=== PATIENT | female | born 1995 | race Caucasian/White ===

== ENCOUNTER 2017-02-11 13:09 | Inpatient (IN) | payer OTHER ==
[~2017-02-11] VITALS: Ht 165.1 cm; Wt 54.2 kg
[2017-02-11] VITALS (7 sets, daily range): BP systolic 105–131; BP diastolic 56–79; PULSE 72–91; RESP 14–22; TEMP 97.3–97.6; O2SAT 96–100
[~2017-02-11 13:09] MED LIST: CEPH500 PO; HYDR-3533 PO; ZOFR4TAB3 SL
--- NOTE | 2017-02-11 13:20 | PD ---
Data Data Last Documented VS Vital Signs Date Time Temp Pulse Resp B/P (MAP) Pulse Ox O2 Delivery O2 Flow Rate FiO2 02/11/17 15:35 88 18 119/59 (79) 99 Room Air 02/11/17 13:15 97.6 Orders Orders Iv Access Insert/Monitor (02/11/17 13:20) Ecg Monitoring (02/11/17 13:20) Oximetry (02/11/17 13:20) Morphine Inj (Morphine Inj) (02/11/17 13:30) Ondansetron Inj (Zofran Inj) (02/11/17 13:30) Sodium Chloride 0.9% Flush (Ns Flush) (02/11/17 13:30) Hip, Uni(Ap&Lat) W Ap Pelvis (02/11/17 ) Chest, Single Ap (02/11/17 ) Forearm (2vws) (02/11/17 ) Wound Care (02/11/17 13:20) Tetanus/Diphtheria Tox Adult (Tetanus/Di (02/11/17 13:30) Hand, Complete ([id number]) (02/11/17 ) Basic Metabolic Panel (Bmp) (02/11/17 14:19) Complete Blood Count With Diff (02/11/17 14:19) Prothrombin Time / Inr (Pt) (02/11/17 14:19) Act Partial Throm Time (Ptt) (02/11/17 14:19) Ct Abd/Pel W Iv Contrast(Rout) (02/11/17 14:19) Sodium Chloride 0.9% Flush (Ns Flush) (02/11/17 14:30) Ct Thorax/ Chest W Iv Contrast (02/11/17 ) Ct Brain W/O Iv Contrast(Rout) (02/11/17 ) Ct Cerv Spine W/O Contrast (02/11/17 ) Splint Or Brace Apply/Monitor (02/11/17 14:19) Morphine Inj (Morphine Inj) (02/11/17 15:15) Fiberglass Sugartong Sp Ad Arm (02/11/17 ) Sling Cradle Arm (02/11/17 ) Sodium Chlor 0.9% 1000 Ml Inj (Ns 1000 M (02/11/17 15:45) Consult Orthopedic (02/11/17 ) (Hub Use Only)Inp Phy Cons/Ref (02/11/17 ) Iohexol 350 Inj (Omnipaque 350 Inj) (02/11/17 16:23) Admit Order (Ed Use Only) (02/11/17 17:14) Labs Laboratory Tests Test 02/11/17 13:25 White Blood Count 24.3 TH/MM3 Red Blood Count 4.36 MIL/MM3 Hemoglobin 14.1 GM/DL Hematocrit 41.8 % Mean Corpuscular Volume 95.9 FL Mean Corpuscular Hemoglobin 32.3 PG Mean Corpuscular Hemoglobin Concent 33.7 % Red Cell Distribution Width 12.6 % Platelet Count 221 TH/MM3 Mean Platelet Volume 10.4 FL Neutrophils (%) (Auto) 81.4 % Lymphocytes (%) (Auto) 11.5 % Monocytes (%) (Auto) 6.2 % Eosinophils (%) (Auto) 0.3 % Basophils (%) (Auto) 0.6 % Neutrophils # (Auto) 19.8 TH/MM3 Lymphocytes # (Auto) 2.8 TH/MM3 Monocytes # (Auto) 1.5 TH/MM3 Eosinophils # (Auto) 0.1 TH/MM3 Basophils # (Auto) 0.2 TH/MM3 CBC Comment DIFF FINAL Differential Comment Prothrombin Time 10.7 SEC Prothromb Time International Ratio 1.0 RATIO Activated Partial Thromboplast Time 24.6 SEC Blood Urea Nitrogen 15 MG/DL Creatinine 0.79 MG/DL Random Glucose 103 MG/DL Calcium Level 9.0 MG/DL Sodium Level 139 MEQ/L Potassium Level 3.3 MEQ/L Chloride Level 103 MEQ/L Carbon Dioxide Level 26.8 MEQ/L Anion Gap 9 MEQ/L Estimat Glomerular Filtration Rate 91 ML/MIN MDM Supervised Visit with AMIRA: Yes Narrative Course I, Dr. Alvarenga, have reviewed the advance practice practitioner's documentation and am in agreement, met with the patient face to face, made the diagnosis, and the medical decision making was done by me. *My assessment and Findings: Patient seen and examined by me in addition to Keanu Gibson PA-C, this is a 21- year-old female fell 8-10 feet with 3 other people while standing on a balcony attempting to evacuate for her cane. Apparently the balcony gave way. The other persons on the balcony and suffered minor injuries. This patient has suffered pubic rami fractures as well as a nondisplaced forearm fracture. Pain management is becoming an issue for her and unfortunately all the pharmacies [facility] have closed so outpatient management of her pain will be impossible at this time. Patient was discussed with Dr. Mixon for admission. He is agreeable. Admitting Information Admitting Physician Requests: Admit Scripts No Active Prescriptions or Reported Meds Condition: Juice Zapata MD Feb 11, 2017 13:20
[2017-02-11] MEDS ORDERED: MORPHINE SULFATE 4 MG/ML INJ IV PUSH ONE ×3 (13:30→17:30)
[2017-02-11] MEDS ORDERED: TETANUS/DIPHTHERIA TOXOID ADULT 0.5 ML VIAL IM ONE (13:30)
[2017-02-11] MEDS ORDERED: ONDANSETRON HCL 4 MG/2 ML VIAL IVP ONE (13:30)
[2017-02-11] MEDS ORDERED: SODIUM CHLORIDE 0.9% FLUSH 10 ML FLUSH IV FLUSH PRN ×3 (13:30→19:30)
--- NOTE | 2017-02-11 13:30 | PD ---
HPI Chief Complaint: fall Time Seen by Provider: 13:20 Travel History International Travel<30 days: No Contact w/Intl Traveler<30days: No History of Present Illness HPI Patient comes emergency Department via EMS status post approximately 8 foot fall from a wooden balcony after it reportedly collapsed. Patient states she landed on her right hip which were most pain is radiates distally along with pain in her right forearm. Patient denies hitting her head, loss consciousness , , chest pain, shortness of breath, abdominal pain, back pain, neck pain, change in vision, dizziness, headache, loss of bowel or bladder, numbness or tingling anywhere, being on any blood thinners, or alcohol consumption today. Patient describes pain as a sharp aching pain that radiates from her right groin distally. Patient point tenderness over right forearm is worse with movement as well as pain over the abrasion volar surface distal aspect. Patient uncertain of her last tetanus shot. PFSH Past Medical History Medical History: Denies Significant Hx Diminished Hearing: No Immunizations Current: Yes Migraines: Yes Past Surgical History Oral Surgery: Yes (WISOM TEETH REMOVED) Social History Alcohol Use: No Tobacco Use: Yes (1/2 PACK) Substance Use: No Allergies-Medications (Allergen,Severity, Reaction): Coded Allergies: No Known Allergies (Verified , 02/11/17) Reported Meds & Prescriptions Reported Meds & Active Scripts Active No Active Prescriptions or Reported Medications Review of Systems Except as stated in HPI: all other systems reviewed are Neg Physical Exam Narrative GENERAL: Well-developed, well nourished, in no acute distress, and non-ill appearing. SKIN: Warm and dry. Superficial abrasions noted volar surface distal right forearm and wrist. HEAD: Atraumatic. Normocephalic. No bony point tenderness or crepitus noted throughout the scalp and facial bones. EYES: PERRLA. EOMI. No scleral icterus. No injection or drainage. No hyphema. Corneas are clear. No foreign body noted. ENT: No nasal bleeding or discharge. Mucous membranes pink and moist. NECK: Trachea midline. No JVD. Supple. No nuclear rigidity. No midline tenderness or crepitus present. CARDIOVASCULAR: Regular rate and rhythm. No murmur appreciated. Radial dorsal pulses 2+, intact, and equal bilaterally. Capillary refill less than 2 seconds. RESPIRATORY: No accessory muscle use. No respiratory distress. Clear to auscultation. Breath sounds equal bilaterally. No seatbelt sign. GASTROINTESTINAL: Abdomen soft, non-tender, nondistended. Hepatic and splenic margins not palpable. Normal bowel sounds 4. No pulsatile mass. No seatbelt sign. MUSCULOSKELETAL: No obvious deformities. No clubbing. No cyanosis. No edema. Full range of motion. Pelvic stable. No midline tenderness or crepitus throughout spinal column. Hip: Decreased range of motion and passive motion right hip secondary to pain. Pulses equal BL distal to injury. Capillary refill less than 2 seconds distal to injury and equal BL. FROM distal to injury and equal BL. Strength distal to injury equal BL. NV intact distal to injury and equal BL. Plantar flexion and dorsal flexion equal BL. Dorsal pulses equal BL. Sensation equal BL 1st web space. Patient reports tenderness to palpation over mid proximal right forearm and abrasions over the distal forearm/right wrist. Shoulder:FROM equal BL with passive flexion, extension, Abduction, Adduction, internal/external rotation, and pronation/supination. Sensation equal BL deltoid muscles. Pulses equal BL distal to injury. Capillary refill less than 2 seconds distal to injury and equal BL. FROM distal to injury and equal BL. Strength distal to injury equal BL. NV intact distal to injury equal BL. Flexion and extension of thumb equal BL. Equal strength and movement with abduction/adductions of BL fingers. Compliance Consultant strength equal BL. NEUROLOGICAL: Awake and alert. No obvious cranial nerve deficits. Motor grossly within normal limits. Normal speech. PSYCHIATRIC: Appropriate mood and affect; insight and judgment normal. Data Data Last Documented VS Vital Signs Date Time Temp Pulse Resp B/P (MAP) Pulse Ox O2 Delivery O2 Flow Rate FiO2 02/11/17 15:35 88 18 119/59 (79) 99 Room Air 02/11/17 13:15 97.6 Orders Orders Iv Access Insert/Monitor (02/11/17 13:20) Ecg Monitoring (02/11/17 13:20) Oximetry (02/11/17 13:20) Morphine Inj (Morphine Inj) (02/11/17 13:30) Ondansetron Inj (Zofran Inj) (02/11/17 13:30) Sodium Chloride 0.9% Flush (Ns Flush) (02/11/17 13:30) Hip, Uni(Ap&Lat) W Ap Pelvis (02/11/17 ) Chest, Single Ap (02/11/17 ) Forearm (2vws) (02/11/17 ) Wound Care (02/11/17 13:20) Tetanus/Diphtheria Tox Adult (Tetanus/Di (02/11/17 13:30) Hand, Complete ([id number]) (02/11/17 ) Basic Metabolic Panel (Bmp) (02/11/17 14:19) Complete Blood Count With Diff (02/11/17 14:19) Prothrombin Time / Inr (Pt) (02/11/17 14:19) Act Partial Throm Time (Ptt) (02/11/17 14:19) Ct Abd/Pel W Iv Contrast(Rout) (02/11/17 14:19) Sodium Chloride 0.9% Flush (Ns Flush) (02/11/17 14:30) Ct Thorax/ Chest W Iv Contrast (02/11/17 ) Ct Brain W/O Iv Contrast(Rout) (02/11/17 ) Ct Cerv Spine W/O Contrast (02/11/17 ) Splint Or Brace Apply/Monitor (02/11/17 14:19) Morphine Inj (Morphine Inj) (02/11/17 15:15) Fiberglass Sugartong Sp Ad Arm (02/11/17 ) Sling Cradle Arm (02/11/17 ) Sodium Chlor 0.9% 1000 Ml Inj (Ns 1000 M (02/11/17 15:45) Consult Orthopedic (02/11/17 ) (Hub Use Only)Inp Phy Cons/Ref (02/11/17 ) Iohexol 350 Inj (Omnipaque 350 Inj) (02/11/17 16:23) Admit Order (Ed Use Only) (02/11/17 17:14) Labs Laboratory Tests Test 02/11/17 13:25 White Blood Count 24.3 TH/MM3 Red Blood Count 4.36 MIL/MM3 Hemoglobin 14.1 GM/DL Hematocrit 41.8 % Mean Corpuscular Volume 95.9 FL Mean Corpuscular Hemoglobin 32.3 PG Mean Corpuscular Hemoglobin Concent 33.7 % Red Cell Distribution Width 12.6 % Platelet Count 221 TH/MM3 Mean Platelet Volume 10.4 FL Neutrophils (%) (Auto) 81.4 % Lymphocytes (%) (Auto) 11.5 % Monocytes (%) (Auto) 6.2 % Eosinophils (%) (Auto) 0.3 % Basophils (%) (Auto) 0.6 % Neutrophils # (Auto) 19.8 TH/MM3 Lymphocytes # (Auto) 2.8 TH/MM3 Monocytes # (Auto) 1.5 TH/MM3 Eosinophils # (Auto) 0.1 TH/MM3 Basophils # (Auto) 0.2 TH/MM3 CBC Comment DIFF FINAL Differential Comment Prothrombin Time 10.7 SEC Prothromb Time International Ratio 1.0 RATIO Activated Partial Thromboplast Time 24.6 SEC Blood Urea Nitrogen 15 MG/DL Creatinine 0.79 MG/DL Random Glucose 103 MG/DL Calcium Level 9.0 MG/DL Sodium Level 139 MEQ/L Potassium Level 3.3 MEQ/L Chloride Level 103 MEQ/L Carbon Dioxide Level 26.8 MEQ/L Anion Gap 9 MEQ/L Estimat Glomerular Filtration Rate 91 ML/MIN MDM Medical Decision Making Medical Screen Exam Complete: Yes Emergency Medical Condition: Yes Interpretation(s) Right hand x-ray read by the radiologist shows: No evidence of fracture at the wrist. Pelvic x-ray read by the radiologist shows: Right-sided pubic rami fractures. X-ray of the right forearm shows: 1. Proximal ulnar shaft fracture. 2. Radius neck fracture. Chest x-ray by the radiologist shows: 1. Multiple punctate radiopaque foreign bodies bilaterally in the upper and lower thorax. These may be in the soft tissues or on the skin. 2. No other acute cardiopulmonary disease identified. Differential Diagnosis Fracture, sprain, contusion, abrasion, laceration, dislocation, other Narrative Course Patient was seen and examined shortly after radiological studies were ordered. IV was established. Patient was in cardiac monitoring. Patient was given morphine for pain and Zofran for nausea. [id number] patient reassessed and unable to lay flat in the bed reports improvement of pain status post medication. Discussed x-ray findings with patient along with additional imaging needed. All questions were answered. Discussed patient with Dr. Alvarenga, who saw and evaluated patient and is in agreement with plan of care and disposition. Discussed all thighs and plan care of patient is agreeable for admission. All questions were answered. Patient remained stable throughout ED course. Discussed patient with trauma surgeon women's apparel salesperson who is agreeable to admit the patient. Physician Communication Physician Communication [id number] Clark, orthopedic on-call, through the OR nurse Jessica who does not recommend any additional intervention at this time and he will see the patient in consult. [id number] Powers, who is agreeable to admit the patient. Diagnosis Primary Impression: Closed fracture of single pubic ramus of pelvis Qualified Codes: S32.591A - Other specified fracture of right pubis, initial encounter for closed fracture Additional Impressions: Closed right forearm fracture Qualified Codes: S52.91XA - Unspecified fracture of right forearm, initial encounter for closed fracture Fall Qualified Codes: W19.XXXA - Unspecified fall, initial encounter Admitting Information Admitting Physician Requests: Admit Scripts No Active Prescriptions or Reported Meds Condition: Arian Mcmanus Feb 11, 2017 13:30
--- NOTE | 2017-02-11 14:32 | RADRPT ---
EXAM DATE/TIME: 02/11/2017 13:37 [facility] COMPARISON: No previous studies available for comparison. INDICATIONS : Right hand pain post fall off balcony. MEDICAL HISTORY : None. SURGICAL HISTORY : None. ENCOUNTER: Initial ACUITY: 1 day PAIN SCORE: 10/10 LOCATION: Right upper extremity FINDINGS: 3 views right hand. Bone alignment within normal limits. No evidence of fracture at the wrist. There is a proximal ulna fracture partially visualized . Proximal ulna fracture noted. CONCLUSION: No evidence of fracture at the wrist. Raul Rangel MD on February 11, 2017 at 14:23 Board Certified Radiologist. This report was verified electronically.
--- NOTE | 2017-02-11 14:34 | RADRPT ---
EXAM DATE/TIME: 02/11/2017 13:39 [facility] COMPARISON: HAND RIGHT COMPLETE ([id number]), February 11, 2017, 13:37. INDICATIONS : Right Forearm pain post fall off balcony. MEDICAL HISTORY : None. SURGICAL HISTORY : None. ENCOUNTER: Initial ACUITY: 1 day PAIN SCORE: 10/10 LOCATION: Right upper extremity FINDINGS: 5 views right forearm. Fracture of the proximal ulna shaft 7 cm distal to the elbow. 5 mm anterior la teral displacement of the distal fragment. Fracture of the neck of the radius also noted. This is casey ssly nondisplaced. CONCLUSION: 1. Proximal ulnar shaft fracture. 2. Radius neck fracture. Raul Rangel MD on February 11, 2017 at 14:31 Board Certified Radiologist. This report was verified electronically.
--- NOTE | 2017-02-11 14:36 | RADRPT ---
EXAM DATE/TIME: 02/11/2017 13:42 [facility] COMPARISON: No previous studies available for comparison. INDICATIONS : Trauma Fell off [place] MEDICAL HISTORY : None. SURGICAL HISTORY : None. ENCOUNTER: Initial ACUITY: 1 day PAIN SCORE: 10/10 LOCATION: Right chest FINDINGS: Single AP view of the chest. The lungs are clear. Cardiomediastinal silhouette within normal limits. No evidence of pleural effusion or pneumothorax. Multiple punctate radiopaque foreign bodies are iden tified bilaterally CONCLUSION: 1. Multiple punctate radiopaque foreign bodies bilaterally in the upper and lower thorax. These may b e in the soft tissues or on the skin. 2. No other acute cardiopulmonary disease identified. Raul Rangel MD on February 11, 2017 at 14:33 Board Certified Radiologist. This report was verified electronically.
--- NOTE | 2017-02-11 14:37 | RADRPT ---
EXAM DATE/TIME: 02/11/2017 13:44 [facility] COMPARISON: No previous studies available for comparison. INDICATIONS : Right hip pain post fall off balcony MEDICAL HISTORY : None. SURGICAL HISTORY : None. ENCOUNTER: Initial ACUITY: 1 day PAIN SCORE: 10/10 LOCATION: Right pelvis FINDINGS: 4 views right hip. Fractures of the superior and inferior pubic rami on the right medially with appro ximately one bone width displacement at the inferior pubic ramus. Hip joint alignment within normal l imits. CONCLUSION: Right-sided pubic rami fractures. Raul Rangel MD on February 11, 2017 at 14:34 Board Certified Radiologist. This report was verified electronically.
[2017-02-11 15:15] LABS: AUTOMATED NEUTROPHIL # 19.8 TH/MM3 (1.8-7.7); BASOPHIL # 0.2 TH/MM3 (0-0.2); BASOPHIL % 0.6 % (0.0-2.0); EOSINOPHIL # 0.1 TH/MM3 (0-0.4); EOSINOPHIL % 0.3 % (0.0-4.0); HEMATOCRIT 41.8 % (35.0-46.0); HEMO FLAGS DIFF FINAL; LYMPH % 11.5 % (9.0-44.0); LYMPHOCYTE # 2.8 TH/MM3 (1.0-4.8); MEAN CELL VOLUME 95.9 FL (80.0-100.0); MEAN CORPUSCULAR HEMOGLOBIN 32.3 PG (27.0-34.0); MEAN CORPUSCULAR HGB CONC 33.7 % (32.0-36.0); MONO % 6.2 % (0.0-8.0); NEUT % 81.4 % (16.0-70.0); PLATELET COUNT 221 TH/MM3 (150-450); RED BLOOD COUNT 4.36 MIL/MM3 (4.00-5.30); RED CELL DISTRIBUTION WIDTH 12.6 % (11.6-17.2); WHITE BLOOD COUNT 24.3 TH/MM3 (4.0-11.0)
[2017-02-11 15:34] LABS: APTT (PATIENT) 24.6 SEC (24.3-30.1); PROTHROMBIN TIME - PATIENT 10.7 SEC (9.8-11.6)
[2017-02-11 15:45] LABS: BICARBONATE 26.8 MEQ/L (21.0-32.0); POTASSIUM 3.3 MEQ/L (3.5-5.1)
[2017-02-11] MEDS ORDERED: SODIUM CHLOR 0.9% 1000 ML INJ 1,000 ML IV ONE (15:45)
[2017-02-11] MEDS ORDERED: IOHEXOL 350 MG/ML 10 ML VIAL (for RAD DIAG) IV PUSH ONE (16:23)
--- NOTE | 2017-02-11 16:49 | RADRPT ---
EXAM DATE/TIME: 02/11/2017 16:01 [facility] COMPARISON: No previous studies available for comparison. INDICATIONS : Trauma; fall 15 feet. RADIATION DOSE: 56.35 CTDIvol (mGy) MEDICAL HISTORY : None SURGICAL HISTORY : None. ENCOUNTER: Initial ACUITY: 1 day PAIN SCALE: 10/10 LOCATION: cranial TECHNIQUE: Multiple contiguous axial images were obtained of the head. Using automated exposure control and adj ustment of the mA and/or kV according to patient size, radiation dose was kept as low as reasonably a chievable to obtain optimal diagnostic quality images. DICOM format image data is available electro nically for review and comparison. FINDINGS: CEREBRUM: The ventricles are normal for age. No evidence of midline shift, mass lesion, hemorrhage or acute in farction. No extra-axial fluid collections are seen. POSTERIOR FOSSA: The cerebellum and brainstem are intact. The 4th ventricle is midline. The cerebellopontine angle i s unremarkable. EXTRACRANIAL: The visualized portion of the orbits is intact. SKULL: The calvaria is intact. No evidence of skull fracture. CONCLUSION: No acute intracranial findings. Raul Rangel MD on February 11, 2017 at 16:45 Board Certified Radiologist. This report was verified electronically.
--- NOTE | 2017-02-11 16:51 | RADRPT ---
EXAM DATE/TIME: 02/11/2017 16:01 [facility] COMPARISON: No previous studies available for comparison. INDICATIONS : Trauma; fall 15 feet. RADIATION DOSE: 21.05 CTDIvol (mGy) MEDICAL HISTORY : None SURGICAL HISTORY : None. ENCOUNTER: Initial ACUITY: 1 day PAIN SCALE: 10/10 LOCATION: Bilateral neck TECHNIQUE: Volumetric scanning of the cervical spine was performed. Multiplanar reconstructions in the sagittal, coronal and oblique axial planes were performed. Using automated exposure control and adjustment o f the mA and/or kV according to patient size, radiation dose was kept as low as reasonably achievable to obtain optimal diagnostic quality images. DICOM format image data is available electronically f or review and comparison. FINDINGS: VERTEBRAE: Normal vertebral body height. ALIGNMENT: No evidence of subluxation. C2-C3: The bony spinal canal is normal in size. No evidence of disc bulge or herniation. The neural forami na are bilaterally patent. C3-C4: The bony spinal canal is normal in size. No evidence of disc bulge or herniation. The neural forami na are bilaterally patent. C4-C5: The bony spinal canal is normal in size. No evidence of disc bulge or herniation. The neural forami na are bilaterally patent. C5-C6: The bony spinal canal is normal in size. No evidence of disc bulge or herniation. The neural forami na are bilaterally patent. C6-C7: The bony spinal canal is normal in size. No evidence of disc bulge or herniation. The neural forami na are bilaterally patent. C7-T1: The bony spinal canal is normal in size. No evidence of disc bulge or herniation. The neural forami na are bilaterally patent. CONCLUSION: No evidence of fracture. Raul Rangel MD on February 11, 2017 at 16:48 Board Certified Radiologist. This report was verified electronically.
--- NOTE | 2017-02-11 16:55 | RADRPT ---
EXAM DATE/TIME: 02/11/2017 16:11 [facility] COMPARISON: No previous studies available for comparison. INDICATIONS : Trauma; fall 15 feet. IV CONTRAST: 80 cc Omnipaque 350 (iohexol) IV ; Cumulative dose for multiple exams. RADIATION DOSE: 5.1 CTDIvol (mGy) ; Combined studies - Thorax/Abdomen/Pelvis MEDICAL HISTORY : None SURGICAL HISTORY : None. ENCOUNTER: Initial ACUITY: 1 day PAIN SCALE: 10/10 LOCATION: Bilateral chest TECHNIQUE: Volumetric scanning of the chest was performed. Using automated exposure control and adjustment of t he mA and/or kV according to patient size, radiation dose was kept as low as reasonably achievable to obtain optimal diagnostic quality images. DICOM format image data is available electronically for review and comparison. Follow-up recommendations for detected pulmonary nodules are based at a minimum on nodule size and pa tient risk factors according to Fleischner Society Guidelines. FINDINGS: LUNGS: There is no consolidation or pneumothorax. No concerning pulmonary nodule is visualized. PLEURA: There is no pleural thickening or pleural effusion. MEDIASTINUM: The heart and great vessels demonstrate no acute abnormality. There is no mediastinal or hilar lymph adenopathy. AXILLAE: Within normal limits. No lymphadenopathy. SKELETAL: Within normal limits for patient age. MISCELLANEOUS: The visualized upper abdominal organs demonstrate no acute abnormality. CONCLUSION: No acute findings in the chest. Raul Rangel MD on February 11, 2017 at 16:50 Board Certified Radiologist. This report was verified electronically.
--- NOTE | 2017-02-11 17:27 | RADRPT ---
EXAM DATE/TIME: 02/11/2017 16:11 [facility] COMPARISON: CT ABDOMEN & PELVIS W CONTRAST, February 25, 2016, 13:51. INDICATIONS : Trauma; fall 15 feet. IV CONTRAST: 80 cc Omnipaque 350 (iohexol) IV ; Cumulative dose for multiple exams. ORAL CONTRAST: No oral contrast ingested. RADIATION DOSE: 5.1 CTDIvol (mGy) ; Combined studies - Thorax/Abdomen/Pelvis MEDICAL HISTORY : None SURGICAL HISTORY : None. ENCOUNTER: Initial ACUITY: 1 day PAIN SCALE: 10/10 LOCATION: Bilateral abdomen TECHNIQUE: Volumetric scanning of the abdomen and pelvis was performed. Using automated exposure control and ad justment of the mA and/or kV according to patient size, radiation dose was kept as low as reasonably achievable to obtain optimal diagnostic quality images. DICOM format image data is available electro nically for review and comparison. FINDINGS: LOWER LUNGS: The visualized lower lungs are clear. LIVER: Homogeneous density without lesion. There is no dilation of the biliary tree. No calcified gallston es. SPLEEN: Normal size without lesion. PANCREAS: Within normal limits. KIDNEYS: 2 mm left lower pole nonobstructing calculus. Otherwise within normal limits. ADRENAL GLANDS: Within normal limits. VASCULAR: There is no aortic aneurysm. BOWEL/MESENTERY: The stomach, small bowel, and colon demonstrate no acute abnormality. There is no free intraperitone al air or fluid. ABDOMINAL WALL: Within normal limits. RETROPERITONEUM: There is no lymphadenopathy. BLADDER: No wall thickening or mass. REPRODUCTIVE: Within normal limits. INGUINAL: There is no lymphadenopathy or hernia. MUSCULOSKELETAL: There is a fracture of the right pubic body in the horizontal plane extending into the superior pubic ramus with one bone width displacement. Adjacent hematoma measures 2.9 cm x 4.2 cm. The hematoma is extraperitoneal. No active extravasation noted. Fracture of the right sacral ala also noted. Sacroili ac joints within normal limits. CONCLUSION: Right pubic body/superior pubic ramus fracture and right-sided sacral fracture. These are acute fract ures. Hematoma is seen adjacent to the pubic fracture. No active extravasation. Raul Rangel MD on February 11, 2017 at 17:20 Board Certified Radiologist. This report was verified electronically.
[2017-02-11] MEDS ORDERED: ONDANSETRON HCL 4 MG/2 ML VIAL IV PRN (19:30)
[2017-02-11] MEDS ORDERED: Post-op Orders (for Pharmacy) MISC XX ONE (19:30)
[2017-02-11] MEDS ORDERED: NALOXONE HCL 0.4 MG/ML AMP IV PRN (19:30)
--- NOTE | 2017-02-11 19:39 | PD.CAR.PN ---
CVT Progress Note Subjective/Hospital Course: 19yo fell ff a balcony and was evaluated as an RD patient now being admitted to trauma service for observation in the face of mechanism and nature of ijnuries.. Injuries Mid ulnar fx and radial head fx R inferior and superior pubc rami fx. Objective: Vital Signs Date Time Temp Pulse Resp B/P (MAP) Pulse Ox O2 Delivery O2 Flow Rate FiO2 02/11/17 17:37 91 18 109/59 (76) 99 Room Air 02/11/17 15:35 88 18 119/59 (79) 99 Room Air 02/11/17 14:32 72 18 130/79 (96) 100 Room Air 02/11/17 13:28 22 100 Room Air 02/11/17 13:24 64 18 02/11/17 13:15 97.6 72 20 131/75 (93) 99 Labs: Laboratory Tests Test 02/11/17 13:25 White Blood Count 24.3 TH/MM3 (4.0-11.0) Red Blood Count 4.36 MIL/MM3 (4.00-5.30) Hemoglobin 14.1 GM/DL (11.6-15.3) Hematocrit 41.8 % (35.0-46.0) Mean Corpuscular Volume 95.9 FL (80.0-100.0) Mean Corpuscular Hemoglobin 32.3 PG (27.0-34.0) Mean Corpuscular Hemoglobin Concent 33.7 % (32.0-36.0) Red Cell Distribution Width 12.6 % (11.6-17.2) Platelet Count 221 TH/MM3 (150-450) Mean Platelet Volume 10.4 FL (7.0-11.0) Neutrophils (%) (Auto) 81.4 % (16.0-70.0) Lymphocytes (%) (Auto) 11.5 % (9.0-44.0) Monocytes (%) (Auto) 6.2 % (0.0-8.0) Eosinophils (%) (Auto) 0.3 % (0.0-4.0) Basophils (%) (Auto) 0.6 % (0.0-2.0) Neutrophils # (Auto) 19.8 TH/MM3 (1.8-7.7) Lymphocytes # (Auto) 2.8 TH/MM3 (1.0-4.8) Monocytes # (Auto) 1.5 TH/MM3 (0-0.9) Eosinophils # (Auto) 0.1 TH/MM3 (0-0.4) Basophils # (Auto) 0.2 TH/MM3 (0-0.2) CBC Comment DIFF FINAL Differential Comment Prothrombin Time 10.7 SEC (9.8-11.6) Prothromb Time International Ratio 1.0 RATIO Activated Partial Thromboplast Time 24.6 SEC (24.3-30.1) Blood Urea Nitrogen 15 MG/DL (7-18) Creatinine 0.79 MG/DL (0.50-1.00) Random Glucose 103 MG/DL (74-106) Calcium Level 9.0 MG/DL (8.5-10.1) Sodium Level 139 MEQ/L (136-145) Potassium Level 3.3 MEQ/L (3.5-5.1) Chloride Level 103 MEQ/L (98-107) Carbon Dioxide Level 26.8 MEQ/L (21.0-32.0) Anion Gap 9 MEQ/L (5-15) Estimat Glomerular Filtration Rate 91 ML/MIN (>89) Result Diagram: 02/11/17 1325 02/11/17 1325 Anastacia Boykin MD Feb 11, 2017 19:39
[2017-02-11] MEDS: SODIUM CHLORIDE 0.9% FLUSH 10 ML FLUSH IV FLUSH SCH (20:38)
[2017-02-11] MEDS: MORPHINE SULFATE 4 MG/ML INJ IV PRN (20:39)
[2017-02-12] VITALS (8 sets, daily range): BP systolic 101–142; BP diastolic 55–79; PULSE 60–78; RESP 17–18; TEMP 97–98.6; O2SAT 97–99
[2017-02-12] MEDS: MORPHINE SULFATE 4 MG/ML INJ IV PRN ×5 (00:54→21:02)
[2017-02-12] MEDS: oxyCODONE/ACETAMINOPHEN 5 MG/325 MG TAB PO PRN ×2 (02:36→09:36)
[2017-02-12] MEDS ORDERED: RESP: ALBUTEROL 2.5 MG/IPRATROPIUM 0.5 MG NEB (PRN) INH (08:00)
[2017-02-12] MEDS ORDERED: ACETAMINOPHEN 325 MG TAB PO PRN (08:00)
[2017-02-12] MEDS ORDERED: POTASSIUM CHLORIDE 20 MEQ CONTROLLED RELEASE TAB PO ONE (08:15)
--- NOTE | 2017-02-12 08:43 | RADRPT ---
EXAM DATE/TIME: 02/12/2017 07:46 [facility] COMPARISON: No previous studies available for comparison. INDICATIONS : Pain from balcony collapse. MEDICAL HISTORY : None. SURGICAL HISTORY : None. ENCOUNTER: Initial ACUITY: 2 days PAIN SCORE: 8/10 LOCATION: Right lateral foot. FINDINGS: 3 views of the right foot demonstrate a nondisplaced transverse fracture through the distal fourth me tatarsal neck. No other fracture or dislocation is identified. Lisfranc joint appears intact. No arth ropathy is present. No soft tissue abnormality or radiopaque foreign body is identified. CONCLUSION: Acute nondisplaced transverse fracture through the distal fourth metatarsal neck. Justin Shelton MD on February 12, 2017 at 8:39 Board Certified Radiologist. This report was verified electronically.
[2017-02-12] MEDS: DOCUSATE SODIUM 50 MG/SENNA 8.6 MG TAB PO SCH ×2 (09:36→20:27)
[2017-02-12] MEDS: SODIUM CHLORIDE 0.9% FLUSH 10 ML FLUSH IV FLUSH SCH ×2 (09:36→20:27)
[2017-02-12] MEDS ORDERED: GENTAMICIN SULFATE 80 MG/2 ML VIAL ONE (10:47)
[2017-02-12] MEDS ORDERED: VANCOMYCIN HCL 1000 MG VIAL ONE (10:47)
[2017-02-12] MEDS ORDERED: ceFAZolin INJ 1,000 MG VIAL ONE (10:47)
--- NOTE | 2017-02-12 10:59 | HHI.PR ---
Subjective Subjective Notes PTD: 1 Pt lying in bed. Numerous family members at bedside. Pt painful. Complains mostly of RIGHT foot pain. Awaiting OR at approx noon with Orthopedics. Objective Vitals/I&O Vital Signs Date Time Temp Pulse Resp B/P (MAP) Pulse Ox O2 Delivery O2 Flow Rate FiO2 02/12/17 07:46 98.3 76 17 104/59 (74) 98 02/11/17 19:34 Room Air Labs Laboratory Tests Test 02/11/17 13:25 White Blood Count 24.3 Red Blood Count 4.36 Hemoglobin 14.1 Hematocrit 41.8 Mean Corpuscular Volume 95.9 Mean Corpuscular Hemoglobin 32.3 Mean Corpuscular Hemoglobin Concent 33.7 Red Cell Distribution Width 12.6 Platelet Count 221 Mean Platelet Volume 10.4 Neutrophils (%) (Auto) 81.4 Lymphocytes (%) (Auto) 11.5 Monocytes (%) (Auto) 6.2 Eosinophils (%) (Auto) 0.3 Basophils (%) (Auto) 0.6 Neutrophils # (Auto) 19.8 Lymphocytes # (Auto) 2.8 Monocytes # (Auto) 1.5 Eosinophils # (Auto) 0.1 Basophils # (Auto) 0.2 CBC Comment DIFF FINAL Differential Comment Prothrombin Time 10.7 Prothromb Time International Ratio 1.0 Activated Partial Thromboplast Time 24.6 Blood Urea Nitrogen 15 Creatinine 0.79 Random Glucose 103 Calcium Level 9.0 Sodium Level 139 Potassium Level 3.3 Chloride Level 103 Carbon Dioxide Level 26.8 Anion Gap 9 Estimat Glomerular Filtration Rate 91 Radiology Last Impressions Foot X-Ray 02/12/17 0000 Signed Impressions: Service Date/Time: Sunday, February 12, 2017 07:46 - CONCLUSION: Acute nondisplaced transverse fracture through the distal fourth metatarsal neck. Justin Shelton MD Abdomen/Pelvis CT 02/11/17 1419 Signed Impressions: Service Date/Time: Saturday, February 11, 2017 16:11 - CONCLUSION: Right pubic body/superior pubic ramus fracture and right-sided sacral fracture. These are acute fractures. Hematoma is seen adjacent to the pubic fracture. No active extravasation. Raul Rangel MD Radius/Ulna X-Ray 02/11/17 Signed Impressions: Service Date/Time: Saturday, February 11, 2017 13:39 - CONCLUSION: 1. Proximal ulnar shaft fracture. 2. Radius neck fracture. Raul Rangel MD Hip and Pelvis X-Ray 02/11/17 Signed Impressions: Service Date/Time: Saturday, February 11, 2017 13:44 - CONCLUSION: Right- sided pubic rami fractures. Raul Rangel MD Head CT 02/11/17 Signed Impressions: Service Date/Time: Saturday, February 11, 2017 16:01 - CONCLUSION: No acute intracranial findings. Raul Rangel MD Hand X-Ray 02/11/17 Signed Impressions: Service Date/Time: Saturday, February 11, 2017 13:37 - CONCLUSION: No evidence of fracture at the wrist. Raul Rangel MD Chest X-Ray 02/11/17 Signed Impressions: Service Date/Time: Saturday, February 11, 2017 13:42 - CONCLUSION: 1. Multiple punctate radiopaque foreign bodies bilaterally in the upper and lower thorax. These may be in the soft tissues or on the skin. 2. No other acute cardiopulmonary disease identified. Raul Rangel MD Chest CT 02/11/17 Signed Impressions: Service Date/Time: Saturday, February 11, 2017 16:11 - CONCLUSION: No acute findings in the chest. Raul Rangel MD Cervical Spine CT 02/11/17 Signed Impressions: Service Date/Time: Saturday, February 11, 2017 16:01 - CONCLUSION: No evidence of fracture. Raul Rangel MD Narrative Exam GENERAL: This is a 21 year old female lying in bed in no acute distress. SKIN: Warm and dry. HEAD: Atraumatic. Normocephalic. EYES: PERRLA ENT: No nasal bleeding or discharge. Mucous membranes pink and moist. NECK: Trachea midline. No JVD. CARDIOVASCULAR: Regular rate and rhythm. RESPIRATORY: No accessory muscle use. Lungs are clear to auscultation. Breath sounds equal bilaterally. No distress or dyspnea. GASTROINTESTINAL: BS + x 4 quads. Abdomen soft, non-tender, nondistended. MUSCULOSKELETAL: Extremities without cyanosis, or edema. RIGHT hand/wrist in splint and then wrapped with eri bandage. + peripheral pulses x 4 extremities. Warm with good capillary refill and sensation. MAEW. Ice packs to RIGHT ankle/foot. NEUROLOGICAL: Awake and alert. Normal speech and pattern. A/P Problem List: (1) Fall ICD Codes: W19.XXXA - Unspecified fall, initial encounter Status: Acute (2) Closed right forearm fracture ICD Codes: S52.91XA - Unspecified fracture of right forearm, initial encounter for closed fracture Status: Acute (3) Closed fracture of single pubic ramus of pelvis ICD Codes: S32.509A - Unspecified fracture of unspecified pubis, initial encounter for closed fracture Status: Acute Assessment and Plan CAMPO: This is a 21 year old female that sustained a fall. She was standing on a wooden balcony, that gave away, and she fell approximately 8 feet and landed on her right side. INJURIES: RIGHT radius/ulna fx RIGHT sided pubic rami fx (non-op) RIGHT sacral fx w/ hematoma (non-op) RIGHT 4th metatarsal fc (non-op) Procedures: 02/12: ORIF RIGHT ulna Consults: Orthopedics. Case management. Diet: Regular diet. Tolerating po diet. Encourage good po intake with each meal. Pulmonary: Encourage good pulmonary toileting. IS at bedside and pt encouraged to use. Rationale for use explained to patient, and verbalized understanding. PAIN Management: Percocet - changed to [place] 10 mg q 3 h post op. Morphine 4 mg q 3 h. Activity: BR. PT and OT ordered. (Awaiting weightbearing status from orthopedics) GI prophylaxis: Pepcid HS. Bowel regimen: Tita-colace and MOM. LBM: 0 DVT prophylaxis: Mechanical VTE with SCDs. Chemical management with Lovenox 40 qd SQ. DC Planning: Case management consulted for assistance with final discharge disposition. Emotional support provided to patient and family at bedside and plan of care discussed. Discussed with RN at bedside. Patient is hemodynamically stable and being managed on the med/surg floor. The trauma team will round each day, and evaluate plan of care on a daily basis. RIGHT radius/ulna fx RIGHT sided pubic rami fx (non-op) RIGHT sacral fx w/ hematoma (non-op) RIGHT 4th metatarsal fc (non-op) Orthopedics consulted and assisting in management and plan 02/12: ORIF RIGHT ulna Non-op management of pelvic fx and metatarsal fx Awaiting weightbearing status from orthopedics. Pain management PT and OT ordered. DVT prophylaxis - Lovenox. Problem Qualifiers (1) Fall: Qualified Codes: W19.XXXA - Unspecified fall, initial encounter (2) Closed right forearm fracture: Qualified Codes: S52.91XA - Unspecified fracture of right forearm, initial encounter for closed fracture (3) Closed fracture of single pubic ramus of pelvis: Qualified Codes: S32.591A - Other specified fracture of right pubis, initial encounter for closed fracture Elham Blanca Feb 12, 2017 10:59
[2017-02-12] MEDS ORDERED: ONDANSETRON HCL 4 MG/2 ML VIAL IV PUSH ONE (11:14)
[2017-02-12] MEDS ORDERED: MIDAZOLAM HCL 2 MG/2 ML VIAL IV ONE (11:14)
[2017-02-12] MEDS ORDERED: PROPOFOL 200 MG/20 ML AMP IV ONE (11:14)
[2017-02-12] MEDS ORDERED: NEOSTIGMINE 3 MG/3 ML SYR IV ONE (11:14)
[2017-02-12] MEDS ORDERED: ACETAMINOPHEN 1000 MG/100 ML 100 ML IV ONE (11:18)
[2017-02-12] MEDS ORDERED: POVIDONE IODINE 5% (ANTISEPSIS KIT) 4 APPLICATIONS EACH NARE PRN (11:30)
[2017-02-12] MEDS ORDERED: SODIUM CHLORID 0.9% 500 ML IV PRN (11:30)
[2017-02-12] MEDS ORDERED: LACTATED RINGER'S 1000 ML IV PRN (11:30)
[2017-02-12] MEDS ORDERED: CHLORHEXIDINE GLUCONATE 2 % 1 PACK (2 CLOTHS) TOPICAL PRN (11:30)
[2017-02-12] MEDS ORDERED: METOPROLOL TARTRATE 25 MG TAB PO PRN (11:30)
[2017-02-12] MEDS ORDERED: INSULIN HUMAN REGULAR 1,000 UNITS/10 ML VIAL SQ PRN (11:30)
--- NOTE | 2017-02-12 12:16 | MH ---
cc: ANASTACIA ABAD MD DATE OF ADMISSION: 02/11/2017 ADMITTING DIAGNOSIS: Fall from a second story balcony, fracture of the right ulna, midshaft and capitulum radius, as well as right inferior superior pubic ramus fracture and sacral fracture. HISTORY OF PRESENT DISEASE: This 21 year-old female was standing on the balcony when it collapsed with her and a friend. They both ended up in the emergency room. The patient is admitted for further care. PAST MEDICAL HISTORY: Negative PAST SURGICAL HISTORY: Negative MEDICATIONS: Negative SOCIAL HISTORY: The patient smokes half-pack per day of cigarettes. She does not drink. PHYSICAL EXAMINATION: The patient is a pleasant 21 year-old female, in no acute distress. HEENT: Normocephalic. No trauma to the head. Pupils equal and reactive. Extraocular movements intact. NEUROLOGIC: The patient is intact. CHEST: Bilateral breath sounds. HEART: Regular rhythm. ABDOMEN: Soft, active bowel sounds. No rebound, no guarding, no masses. PELVIC: The patient is tender over the pubic area, bilateral right more than left. She also has tenderness in the lower back, although I do not see any injuries there. Patient has some bruising over the right pubic area. EXTREMITIES: Patient's bilateral femoral, popliteal, dorsalis pedis, posterior tibial pulses, bilateral brachial, ulnar, and radial pulses. The patient has severe pain and some swelling in the right forearm consistent with ulnar fracture and capitulum radii fracture. In addition, the patient has some tenderness in the right ankle. I do not see any fracture on initial films but it is not inconceivable that the patient would have fracture of the medial malleolus that is nondisplaced and I just don't see it on this film. The patient is at this point admitted. Orthopedic will be consulted and further care of her clinical indices. Anastacia CELAYA /11:10 AM /11:58 AM
--- NOTE | 2017-02-12 12:56 | MB ---
cc: WASHINGTON GOMEZ DATE OF CONSULTATION: 02/12/2017 REASON FOR CONSULTATION: 1. Right-sided pelvic fracture. 2. Right foot fracture, 3. Right radius and ulna fractures. CONSULTING PHYSICIAN: Dr. Boykin. HISTORY OF PRESENT ILLNESS: Pattie is a 21-year-old female who had a fall. She was on a wooden balcony. She was with other people, and the balcony collapsed. She fell and hit the ground. She landed on her right side. She had immediate right-sided hip and groin pain. She also had right forearm pain and right foot pain. She is currently awake and alert on the orthopedic floor. She states the pain is worse with movement and is improved with rest. She remembers the accident and denies loss of consciousness. PAST MEDICAL HISTORY: ILLNESSES: None. SURGERIES: [place] tooth extraction. ALLERGIES: None. MEDICATIONS: None. FAMILY HISTORY: Noncontributory. SOCIAL HISTORY: The patient denies alcohol or drug use. She smokes a half a pack a day. REVIEW OF SYSTEMS: The patient denies headache, visual changes, neck pain, chest pain, shortness of breath, abdominal pain, nausea or vomiting or recent weight loss, numbness or tingling of extremities. She complains of right-sided forearm pain, pelvic pain and right foot pain. PHYSICAL EXAMINATION: The patient is a pleasant 21-year-old female in no acute distress. She is awake and alert. She appears well-developed, well-nourished. She is in no acute distress. VITAL SIGNS: Temperature 98.4, Pulse 72, respirations 17, blood pressure 105/62, O2 sat is 99% on room air. HEAD: The patient is normocephalic. Pupils are equal. NECK: Soft and nontender. Trachea is midline. ABDOMEN: Soft, nontender, nondistended. EXTREMITIES: Examination of right arm reveals no tenderness around her shoulder. She has mild tenderness around her elbow and forearm. Forearm compartments are soft. She has intact sensation in all fingers. She has good cap refill in all fingers. Sensation is intact in all fingers. Examination of the left arm reveals no pain with shoulder, elbow or wrist motion. Skin is intact. Radial pulses palpable. Sensation is intact. Examination of left leg reveals no pain with hip, knee or ankle motion. Skin is intact. Dorsalis pedis pulses palpable. Sensation is intact. Examination of right leg reveals no pain with hip or knee motion. She has mild tenderness over the lateral ankle ligaments. She also has mild tenderness over the fourth metatarsal. Skin is intact. Dorsalis pedis pulses palpable. Sensation is intact. Examination of her pelvis reveals tenderness over the right side of her pubic rami. She has pain with AP and lateral compression of her pelvis. There is no gross instability noted. X-RAYS: X-rays of right forearm were reviewed. X-rays reveal a nondisplaced right radial head fracture and a mildly displaced right ulna shaft fracture. X-rays of pelvis were reviewed. The patient has mildly displaced right-sided pubic rami fractures with minimally displaced right-sided sacral fracture. X-rays of right foot were reviewed. X-rays reveal a nondisplaced fourth metatarsal fracture. IMPRESSION: 1. Right radius and ulna fractures. 2. Right-sided pelvic fracture with minimal displacement. 3. Right foot fourth metatarsal fracture. PLAN: Treatment options were discussed with the patient. At this point, I would recommend open reduction and internal fixation of right ulna. Currently, the radius is well-aligned. I will plan on nonoperative treatment of the radius. I would recommend nonoperative treatment of the pelvis and right foot fractures. Risks of surgery include bleeding, infection, injury to arteries, nerves and blood vessels, nonunion, malunion, painful hardware as well as medical complications associated with anesthesia; all questions were answered. I will plan on surgery today. A mid-level provider in my office, nurse practitioner or PA, may see this patient on a follow-up basis and continue to implement the objective of this plan including: Starting or adjusting medications, injections of muscle, tendon, bursa or joints, cast application, orthotic or brace application, physical therapy, further radiographic studies including x-ray, MRI, CT, ultrasounds or bone scan, vascular studies, neurologic studies, or other specialist consultations, and proceeding with surgical management as appropriate. MD JOSEPH Franco/SHALINI /11:54 AM /12:39 PM [facility]Johnson
[2017-02-12] MEDS ORDERED: MORPHINE SULFATE 4 MG/ML INJ IV PUSH PRN (13:00)
--- NOTE | 2017-02-12 13:01 | PD.OP ---
cc: Chuy Palomares MD Operative Report Date of Surgery: Feb 12, 2017 Preoperative Diagnosis: Postoperative Diagnosis: Right ulna shaft fracture, right radial neck fracture, right sided pelvic ring fracture, right fourth metatarsal fracture Procedure: Open reduction internal fixation right proximal ulna shaft fracture with closed treatment right radial neck fracture Anesthesia: Gen. Surgeon: Chuy Palomares [employer](s): none Operation and Findings: Patient was seen and evaluated preoperatively. Patient was found to have a displaced right proximal ulna shaft fracture with a nondisplaced radial neck fracture. The risk and benefits of the surgery were discussed in depth and informed consent was obtained. Risk of surgery include bleeding, infection, painful hardware, wound, case, elbow stiffness, loss of motion, elbow arthritis , injuries to arteries nerves or blood vessels, weakness and numbness of hand, as well as medical complications associated with general anesthesia. All questions were answered. Patient was brought to operating room. IV sedation and anesthesia were administered. Patient was placed into a lateral decubitus position. Timeout procedure was performed. IV antibiotics were administered prior to incision. The operative arm was prepped with alcohol followed by Hibiclens and draped in usual sterile fashion. Procedure began with a 6 inch incision over the proximal ulna. Subcutaneous tissue dissected with Bovie. Fracture site was visualized. Fascia was elevated around the fracture site. There was mild comminution of the fracture site. Fracture fragments were gently manipulated. A fracture tenaculum was used to aid in reduction. Fracture keyed in anatomic alignment. A 2.7 lag screw was placed across the fracture for compression. Next an ITS plate was selected.. Plate was provisionally held with K wires 3.5 cortical screws were used to compress plate to bone. Multiple cortical screws were placed on both sides of the fracture. All screws were predrilled and premeasured for appropriate length. K wires were removed. Final fluoroscopy revealed excellent of fractures well-placed hardware. Articular surface appeared to be in near anatomic alignment. Wound was now thoroughly irrigated. Incision was now closed with #1 Vicryl, 3-0 Vicryl, and elizabeth. Sterile dressings were applied. Patient's placed a well molded well-padded splint. Patient was transferred to recovery in stable condition. Chuy Palomares MD Feb 12, 2017 13:01
[2017-02-12] MEDS ORDERED: DO NOT ADM ANY ANTICOAGULANT DRUGS PRN (13:05)
[2017-02-12] MEDS ORDERED: *MEPERIDINE 25 MG INJ VIAL PERIprocedural Use ONLY ONE (13:08)
[2017-02-12] MEDS ORDERED: *ONDANSETRON 4 MG VIAL PERIprocedural Use ONLY ONE (13:15)
[2017-02-12] MEDS ORDERED: *PROMETHAZINE 25 MG/ML VIAL PERIprocedural use ONLY ONE (13:16)
--- NOTE | 2017-02-12 13:30 | RADRPT ---
EXAM DATE/TIME: 02/12/2017 12:37 [facility] COMPARISON: FOREARM RIGHT (2VWS), February 11, 2017, 13:39. INDICATIONS : Open reduction internal fixation right ulna. MEDICAL HISTORY : None. SURGICAL HISTORY : None. ENCOUNTER: Initial ACUITY: 1 day PAIN SCORE: Non-responsive. LOCATION: Right Forearm. FINDINGS: Two view examination of the right forearm demonstrates postsurgical changes following open reduction and internal fixation of a right ulnar shaft fracture. Extra medullary plate has been applied. Fractu re fragments are satisfactory aligned. CONCLUSION: Satisfactory appearance of the right ulna status post ORIF. Richard Anderson MD on February 12, 2017 at 13:28 Board Certified Radiologist. This report was verified electronically.
[2017-02-12] MEDS ORDERED: DO NOT ADMINISTER ANTICOAGULANTS PRN (14:30)
[2017-02-12] MEDS ORDERED: fentaNYL 2MCG-BUPIV 0.125% 100 ML EPIDURAL SCH (14:30)
[2017-02-12] MEDS ORDERED: NO SYSTEM NARCOTICS PRN (14:30)
[2017-02-12] MEDS ORDERED: ePHEDrine/NS 25 MG/5 ML SYR IV PRN (14:30)
[2017-02-12] MEDS: LACTATED RINGER'S 1000 ML INJ 1,000 ML IV SCH (18:04)
[2017-02-12] MEDS: ACETAMINOPHEN/HYDROcodone 325 MG/10 MG TAB PO PRN ×2 (20:24→23:36)
[2017-02-12] MEDS: ceFAZolin 2 GM PREMIX 50 ML IV SCH (20:26)
[2017-02-12] MEDS ORDERED: FAMOTIDINE 20 MG TAB PO SCH (21:00)
[2017-02-12] MEDS ORDERED: MAGNESIUM HYDROXIDE SUSP 30 ML CUP PO SCH (21:00)
[2017-02-13] MEDS: MORPHINE SULFATE 4 MG/ML INJ IV PRN ×2 (01:47→07:54)
[2017-02-13] MEDS: ceFAZolin 2 GM PREMIX 50 ML IV SCH ×2 (03:59→12:50)
[2017-02-13] MEDS: ACETAMINOPHEN/HYDROcodone 325 MG/10 MG TAB PO PRN ×3 (04:00→13:52)
[2017-02-13 04:30] VITALS: BP 98/63; PULSE 63; RESP 17; TEMP 97.8; O2SAT 99
[2017-02-13 04:32] LABS: AUTOMATED NEUTROPHIL # 14.2 TH/MM3 (1.8-7.7); BASOPHIL % 0.1 % (0.0-2.0); HEMATOCRIT 37.2 % (35.0-46.0); HEMO FLAGS DIFF FINAL; LYMPH % 5.6 % (9.0-44.0); LYMPHOCYTE # 0.9 TH/MM3 (1.0-4.8); MEAN CELL VOLUME 95.8 FL (80.0-100.0); MEAN CORPUSCULAR HEMOGLOBIN 31.5 PG (27.0-34.0); MEAN CORPUSCULAR HGB CONC 32.9 % (32.0-36.0); MONO % 8.6 % (0.0-8.0); NEUT % 85.7 % (16.0-70.0); PLATELET COUNT 150 TH/MM3 (150-450); RED BLOOD COUNT 3.89 MIL/MM3 (4.00-5.30); RED CELL DISTRIBUTION WIDTH 12.8 % (11.6-17.2); WHITE BLOOD COUNT 16.6 TH/MM3 (4.0-11.0)
[2017-02-13 05:04] LABS: BICARBONATE 26.1 MEQ/L (21.0-32.0)
[2017-02-13 05:05] LABS: POTASSIUM 4.4 MEQ/L (3.5-5.1)
[2017-02-13 05:45] VITALS: BP 104/52
[2017-02-13] MEDS ORDERED: XARE10TA PO (07:44)
[2017-02-13] MEDS ORDERED: HYDR-3366 PO (07:44)
--- NOTE | 2017-02-13 07:47 | PD.ORT.PN ---
Subjective Subjective Remarks Patient awake and alert. SHe does still have some pain right arm, right side of pelvis, and right foot Objective Vitals Vital Signs Date Time Temp Pulse Resp B/P (MAP) Pulse Ox O2 Delivery O2 Flow Rate FiO2 02/13/17 05:45 104/52 (69) 02/13/17 04:30 97.8 63 17 98/63 (75) 99 02/13/17 00:35 18 02/12/17 23:00 97.4 60 17 105/71 (82) 98 02/12/17 19:44 97.0 64 18 101/63 (76) 97 02/12/17 16:29 69 142/79 (100) 02/12/17 15:34 97.5 71 17 107/57 (74) 97 02/12/17 13:30 74 20 103/66 (78) 99 Room Air 02/12/17 13:15 129 33 132/71 (91) 89 Room Air 02/12/17 13:13 92 13 124/73 (90) 97 Nasal Cannula 2 02/12/17 13:08 97.8 103 20 123/62 (82) 100 Nasal Cannula 4 02/12/17 11:34 98.4 70 17 105/62 (76) 99 02/12/17 07:46 98.3 76 17 104/59 (74) 98 I/O 02/12/17 02/12/17 02/12/17 02/13/17 02/13/17 02/13/17 07:00 15:00 23:00 07:00 15:00 23:00 Intake Total 360 ml 1000 ml 360 ml 360 ml Output Total 50 ml Balance 360 ml 950 ml 360 ml 360 ml Intake Oral 360 ml 200 ml 360 ml 360 ml IV Total 800 ml Output Emesis 25 ml Estimated Blood Loss 25 ml # Voids 1 3 2 3 # Bowel Movements 0 0 0 Result Diagram: 02/13/1735202/13/17352 Objective Remarks Patient is awake and alert. Right upper extremity--well molded splint in place. Forearm compartments soft. Neurovascularly intact right hand Pelvis--tender to palpation right rami Right foot--tender to palpation right lateral ankle and right fourth metatarsal , neurovascular intact right lower extremity Assessment & Plan Assessment and Plan Postoperative day #1 status post ORIF right ulna Nonweightbearing right arm, weight-bear as tolerated right leg Physical therapy for wheelchair and transfer training Lovenox/Xarelto Discharge patient home today or tomorrow if safe with therapy Chuy Lynn MD Feb 13, 2017 07:47
[2017-02-13] MEDS: DOCUSATE SODIUM 50 MG/SENNA 8.6 MG TAB PO SCH (07:51)
[2017-02-13] MEDS: SODIUM CHLORIDE 0.9% FLUSH 10 ML FLUSH IV FLUSH SCH (07:51)
[2017-02-13 08:06] VITALS: BP 107/55; PULSE 65; RESP 16; TEMP 97.4; O2SAT 99
[2017-02-13] MEDS ORDERED: WHEEMIS3 (08:21)
[2017-02-13] MEDS ORDERED: SENN1TAB PO (08:21)
[2017-02-13] MEDS ORDERED: MAGN400S PO (08:21)
[2017-02-13] MEDS: LACTATED RINGER'S 1000 ML INJ 1,000 ML IV SCH (10:00)
[2017-02-13 11:22] VITALS: BP 111/56; PULSE 69; RESP 16; TEMP 98.9; O2SAT 99
[2017-02-13] MEDS ORDERED: BEDSIDE COMMODE1 MI1 (11:47)
--- NOTE | 2017-02-13 11:57 | HHI.DS ---
Discharge Summary Admission Date Feb 11, 2017 at 17:16 Discharge Date: Feb 13, 2017 Admitting Diagnosis pelvic rami fracture, forearm fracture, fall (1) Fall ICD Codes: W19.XXXA - Unspecified fall, initial encounter Status: Acute (2) Closed right forearm fracture ICD Codes: S52.91XA - Unspecified fracture of right forearm, initial encounter for closed fracture Status: Acute (3) Closed fracture of single pubic ramus of pelvis ICD Codes: S32.509A - Unspecified fracture of unspecified pubis, initial encounter for closed fracture Status: Acute Brief History Fall from a balcony. CBC/BMP: 02/13/17 0353 02/13/17 0353 Significant Findings Laboratory Tests Test 02/11/17 13:25 02/13/17 03:53 White Blood Count 24.3 TH/MM3 (4.0-11.0) 16.6 TH/MM3 (4.0-11.0) Neutrophils (%) (Auto) 81.4 % (16.0-70.0) 85.7 % (16.0-70.0) Neutrophils # (Auto) 19.8 TH/MM3 (1.8-7.7) 14.2 TH/MM3 (1.8-7.7) Monocytes # (Auto) 1.5 TH/MM3 (0-0.9) 1.4 TH/MM3 (0-0.9) Potassium Level 3.3 MEQ/L (3.5-5.1) Red Blood Count 3.89 MIL/MM3 (4.00-5.30) Lymphocytes (%) (Auto) 5.6 % (9.0-44.0) Monocytes (%) (Auto) 8.6 % (0.0-8.0) Lymphocytes # (Auto) 0.9 TH/MM3 (1.0-4.8) Random Glucose 121 MG/DL (74-106) Imaging Last Impressions Radius/Ulna X-Ray 02/12/17 0000 Signed Impressions: Service Date/Time: Sunday, February 12, 2017 12:37 - CONCLUSION: Satisfactory appearance of the right ulna status post ORIF. Richard Anderson MD Foot X-Ray 02/12/17 0000 Signed Impressions: Service Date/Time: Sunday, February 12, 2017 07:46 - CONCLUSION: Acute nondisplaced transverse fracture through the distal fourth metatarsal neck. Justin Shelton MD Abdomen/Pelvis CT 02/11/17 1419 Signed Impressions: Service Date/Time: Saturday, February 11, 2017 16:11 - CONCLUSION: Right pubic body/superior pubic ramus fracture and right-sided sacral fracture. These are acute fractures. Hematoma is seen adjacent to the pubic fracture. No active extravasation. Raul Rangel MD Hip and Pelvis X-Ray 02/11/17 0000 Signed Impressions: Service Date/Time: Saturday, February 11, 2017 13:44 - CONCLUSION: Right- sided pubic rami fractures. Raul Rangel MD Head CT 02/11/17 0000 Signed Impressions: Service Date/Time: Saturday, February 11, 2017 16:01 - CONCLUSION: No acute intracranial findings. Raul Rangel MD Hand X-Ray 02/11/17 0000 Signed Impressions: Service Date/Time: Saturday, February 11, 2017 13:37 - CONCLUSION: No evidence of fracture at the wrist. Raul Rangel MD Chest X-Ray 02/11/17 0000 Signed Impressions: Service Date/Time: Saturday, February 11, 2017 13:42 - CONCLUSION: 1. Multiple punctate radiopaque foreign bodies bilaterally in the upper and lower thorax. These may be in the soft tissues or on the skin. 2. No other acute cardiopulmonary disease identified. Raul Rangel MD Chest CT 02/11/17 0000 Signed Impressions: Service Date/Time: Saturday, February 11, 2017 16:11 - CONCLUSION: No acute findings in the chest. Raul Rangel MD Cervical Spine CT 02/11/17 0000 Signed Impressions: Service Date/Time: Saturday, February 11, 2017 16:01 - CONCLUSION: No evidence of fracture. Raul Rangel MD PE at Discharge GENERAL: This is a 21 year old female OOB in wheelchair. No distress. Pleasant and cooperative. SKIN: Warm and dry. HEAD: Atraumatic. Normocephalic. EYES: PERRLA ENT: No nasal bleeding or discharge. Mucous membranes pink and moist. NECK: Trachea midline. No JVD. CARDIOVASCULAR: Regular rate and rhythm. RESPIRATORY: No accessory muscle use. Lungs are clear to auscultation. Breath sounds equal bilaterally. No distress or dyspnea. GASTROINTESTINAL: BS + x 4 quads. Abdomen soft, non-tender, nondistended. MUSCULOSKELETAL: Extremities without cyanosis, or edema. RIGHT hand/wrist in splint and then wrapped with eri bandage. + peripheral pulses x 4 extremities. Warm with good capillary refill and sensation. MAEW. NEUROLOGICAL: Awake and alert. Normal speech and pattern. Hospital Course VIEJAS: This is a 21 year old female that sustained a fall. She was standing on a wooden balcony, that gave away, and she fell approximately 8 feet and landed on her right side. INJURIES: RIGHT radius/ulna fx RIGHT sided pubic rami fx (non-op) RIGHT sacral fx w/ hematoma (non-op) RIGHT 4th metatarsal fc (non-op) Procedures: 02/12: ORIF RIGHT ulna Consults: Orthopedics. Case management. The patient is now tolerating a po diet. Eating and drinking well. She wants to go home. Pain is being managed well with PO pain medications, and patient is being a provided with a script for pain meds upon discharge. (NO driving while taking narcotic pain medication enforced to patient.) We have recommended to patient to continue with stool softeners while taking narcotic pain medications to prevent constipation. Pt has been participating in PT and OT while admitted at [facility] and has been ambulating with their assistance and independently. Wheelchair training. DME ordered. (Patient states she can get a wheelchair from her friend's mother.) All follow up appointments have been provided and discussed with the patient. It is recommended that the patient keeps all his follow up appointments for continued recovery. Therefore, the patient is stable to be safely discharged home from a trauma surgery standpoint. Thank you for allowing us to participate in her care. We wish Pattie the best in her recovery. RIGHT radius/ulna fx RIGHT sided pubic rami fx (non-op) RIGHT sacral fx w/ hematoma (non-op) RIGHT 4th metatarsal fc (non-op) Orthopedics consulted and assisting in management and plan 02/12: ORIF RIGHT ulna Non-op management of pelvic fx and metatarsal fx NWB RUE; WBAT RLE wheelchair training. Pain management PT and OT ordered. OOB DVT prophylaxis - Lovenox. Orthopedics provided scripts Pt Condition on Discharge: Good Discharge Disposition: Discharge Home Discharge Instructions DIET: Follow Instructions for: As Tolerated, No Restrictions Activities you can perform: Weight Bearing as Bryanna, Non Weight Bearing Activities to Avoid: Concussion Sports, Contact Sports, Lifting/Bending, Weight Bearing, Strenuous Activity, Driving Other Activity Instructions: Non weight bearing RUE Weight bearing as tolerated RLE. Elham Blanca Feb 13, 2017 11:57
[2017-02-13] MEDS ORDERED: ENOXAPARIN SODIUM 40 MG/0.4 ML SYRINGE SQ SCH (12:00)
[2017-02-13 16:00] VITALS: BP 124/68; PULSE 70; RESP 16; TEMP 96.8; O2SAT 97
== END 2017-02-13 17:43 | disposition home or self-care (01) | DRG 511 ==
LOC: NEPE 13:09 → NEDA 17:16 → N06B 20:05
PROVIDERS: ADMIT Surgery; ATTEND Surgery
PROC: 0PSK04Z Reposition Right Ulna with Internal Fixation Device, Open Approach (ICD-10-PCS; principal; 2017-02-12 11:48)
DX: S52.251A Displaced comminuted fracture of shaft of ulna, right arm, initial encounter for closed fracture (principal); S32.591A Other specified fracture of right pubis, initial encounter for closed fracture; S32.10XA Unspecified fracture of sacrum, initial encounter for closed fracture; F17.210 Nicotine dependence, cigarettes, uncomplicated; S52.134A Nondisplaced fracture of neck of right radius, initial encounter for closed fracture; W17.89XA Other fall from one level to another, initial encounter; G43.909 Migraine, unspecified, not intractable, without status migrainosus; S92.344A Nondisplaced fracture of fourth metatarsal bone, right foot, initial encounter for closed fracture
CPT/HCPCS: 70450; 71010; 71260; 72125; 73090; 73130; 73502; 73630; 74177; 76000; 80048; 85025; 85610; 85730; 90471; 90714; 94150; 96361; 96374; 96375; 96376; C1713; J0131; J0690; J1580; J1650; J2175; J2250; J2270; J2405; J2550; J2710; J3010; J3370; J7030; J7120; Q9967

== ENCOUNTER → 2017-07-14 | Day surgery (SDC) | payer OTHER ==
[~2017-07-14] MED LIST changes: +*PROMETHAZINE 25 MG/ML VIAL PERIprocedural use ONLY ONE; +ACETAMINOPHEN/HYDROcodone 325 MG/7.5 MG TAB PO PRN; +BEDSIDE COMMODE1 MI1; +BUPIVACAINE/EPINEPHRINE 0.25% 50 ML VIAL ONE; -CEPH500 PO; +CHLORHEXIDINE GLUCONATE 2 % 1 PACK (2 CLOTHS) TOPICAL PRN; +CHLORHEXIDINE GLUCONATE 4% SOLN 120 ML BTL TOPICAL SCH; +DEXAMETHASONE SOD PHOS 4 MG/ML VIAL IV ONE; +DO NOT ADM ANY ANTICOAGULANT DRUGS PRN; +GENTAMICIN SULFATE 80 MG/2 ML VIAL ONE; +HYDR-3288 PO; +HYDR-3366 PO; -HYDR-3533 PO; +KETOROLAC TROMETHAMINE 30 MG/ML (IVP) VIAL IV PUSH ONE; +LACTATED RINGER'S 1000 ML INJ 1,000 ML IV ONE; +LACTATED RINGER'S 1000 ML IV PRN; +LIDOCAINE HCL 1% PF 5 ML SYRINGE OTHER ONE; +MAGN400S PO; +METOPROLOL TARTRATE 25 MG TAB PO PRN; +MIDAZOLAM HCL 2 MG/2 ML VIAL ONE; +MORPHINE SULFATE 4 MG/ML INJ IV PUSH PRN; +ONDANSETRON HCL 4 MG/2 ML VIAL IV ONE; +ONDANSETRON HCL 4 MG/2 ML VIAL IV PUSH PRN; +PHENYLEPH/NS 1000 MCG/10 ML SYR IV ONE; +POVIDONE IODINE 5% (ANTISEPSIS KIT) 4 APPLICATIONS EACH NARE PRN; +PROPOFOL 200 MG/20 ML AMP IV ONE; +SENN1TAB PO; +SODIUM CHLORIDE 0.9% FLUSH 10 ML FLUSH IV FLUSH PRN; +SODIUM CHLORIDE 0.9% FLUSH 10 ML FLUSH IV FLUSH SCH; +VANCOMYCIN 1 GM/200 ML INJ 200 ML IV SCH; +WHEEMIS3; +XARE10TA PO; -ZOFR4TAB3 SL; +ceFAZolin 2 GM PREMIX 50 ML IV SCH; +diphenhydrAMINE HCL 50 MG/ML VIAL ONE
--- NOTE | 2017-07-14 10:12 | PD.OP ---
cc: Chuy Palomares MD Operative Report Date of Surgery: Jul 14, 2017 Preoperative Diagnosis: Painful hardware right ulna Postoperative Diagnosis: Procedure: Removal of deep hardware right ulna Anesthesia: Gen. Surgeon: [facility] Medical Assistant(s): SOLIS Contreras PA-C Operation and Findings: Pattie is known to me from previous treatment of right ulna fracture with open reduction internal fixation. She has developed continued pain around her hardware. After discussion of the risk and benefits of surgery, she wished to proceed with removal of painful hardware from her right ulna. Informed consent was confirmed. Operative site was marked. She is brought to operating room. She is given IV sedation and general anesthesia. Right arm was prepped with alcohol followed by Hibiclens and draped usual sterile fashion. IV antibiotics were administered prior to incision. Timeout procedure was performed to identify patient and procedure. Procedure began with a 5 inch incision through previous scar. Subcutaneous tissues dissected with Bovie. The plate was identified. Scar tissue was incised from around the plate. Screws were now exposed. Each of the screws was now removed using a screwdriver. The plate was elevated. Curettes and rongeurs were used to debride fibrous tissue around the plate. Fluoroscopy confirmed removal of all hardware. Wound was thoroughly irrigated. Fascia was closed with #1 Vicryl, subcutaneous tissues closed with 3-0 Vicryl and skin was closed with elizabeth. Sterile dressings were applied. Local anesthetic was infiltrated into the soft tissue prior to closure. She was awakened and transferred to recovery room in stable condition. Chuy Palomares MD Jul 14, 2017 10:12
[2017-07-14 12:00] VITALS: BP 105/59; PULSE 68; RESP 20; TEMP 97.7; O2SAT 98
--- NOTE | 2017-07-14 15:03 | RADRPT ---
EXAM DATE/TIME: 07/14/2017 09:48 [facility] COMPARISON: No previous studies available for comparison. INDICATIONS : Hardware removal- ORIF done in OR. MEDICAL HISTORY : None. SURGICAL HISTORY : None. ENCOUNTER: Initial ACUITY: 1 day PAIN SCORE: Non-responsive. LOCATION: Right Forearm. FINDINGS: Hardware has been removed. There are no radiopaque objects left. Alignment anatomic.. CONCLUSION: Anatomic alignment. Sky Mckeon MD FACR on July 14, 2017 at 15:01 Board Certified Radiologist. This report was verified electronically.
== END | disposition home or self-care (01) ==
LOC: HSDC 05:44
PROVIDERS: ATTEND Orthopaedic Surgery Orthopaedic Trauma
DX: T84.84XA Pain due to internal orthopedic prosthetic devices, implants and grafts, initial encounter (principal)
CPT/HCPCS: 01830; 20680; 73090; 76000; J0690; J1100; J1200; J1580; J1885; J2250; J2370; J2405; J2550; J3010; J7120